=== PATIENT | male | born 1985 | race Caucasian/White ===

== ENCOUNTER 2017-04-22 20:23 | Emergency (ER) | payer SELFPAY ==
[2017-04-22 20:56] VITALS: BP 140/78; PULSE 83; RESP 16; TEMP 98.4; O2SAT 97
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
[2017-04-22] MEDS ORDERED: Lidocaine 1% Inj (20ml) IJ ONE (21:29)
== END 2017-04-22 22:58 | disposition home or self-care (01) ==
LOC: H.ER 20:23
DX: S01.511A Laceration without foreign body of lip, initial encounter (principal); S01.81XA Laceration without foreign body of other part of head, initial encounter; Y04.0XXA Assault by unarmed brawl or fight, initial encounter